=== PATIENT | female | born 1955 | race Caucasian/White ===

== ENCOUNTER 2016-09-24 07:52 | Emergency (ER) | payer SELFPAY ==
[~2016-09-24] VITALS: Ht 167.6 cm; Wt 52.0 kg
[2016-09-24 07:53] VITALS: BP 164/80; PULSE 74; RESP 20; TEMP 98.1; O2SAT 95
--- NOTE | 2016-09-24 08:24 | PD ---
HPI Chief Complaint: Cold / Flu Symptoms Time Seen by Provider: 08:21 Travel History International Travel<30 days: Yes Contact w/Intl Traveler<30days: Yes Name of Country Traveled to: TRAVELED FROM [place] Traveled to known affect area: No History of Present Illness HPI 60-year-old female presents to the emergency department for evaluation of cold symptoms and right-sided chest pain with deep breathing. Patient states she was in [place]. She just traveled from [place] on September 12 when her cold symptoms started. She states that she had flulike symptoms then. She states it did improve, but over the last 2 days have worsened. She denies any current fevers. Her main complaint is right-sided pleuritic chest pain. Patient states she also has intermittent shortness of breath, cough. She has no chronic medical problems and takes no prescribed medications. She states that she has had a productive cough that was brown in color. Patient denies any abdominal pain. No nausea, vomiting, diarrhea. Patient denies any leg edema. No recent surgeries. PFSH Social History Alcohol Use: No Tobacco Use: No Substance Use: No Allergies-Medications (Allergen,Severity, Reaction): Coded Allergies: Iodine (Verified Allergy, Severe, Anaphylaxis, 09/24/16) Penicillin (Verified Allergy, Severe, Rash, 09/24/16) Reported Meds & Prescriptions Reported Meds & Active Scripts Active Guaifenesin ER 12 HR (Guaifenesin) 1,200 Mg Aston 1,200 Mg PO BID Tussionex Pennkinetic Ext 12 HR Liq (Hydrocodone-Chlorpheniramine 12 HR Liq) 10- 8 Mg/5 Ml Susp 5 Ml PO Q12H PRN Zithromax (Azithromycin) 250 Mg Tab 250 Mg PO DAILY Starting tomorrow Review of Systems Except as stated in HPI: all other systems reviewed are Neg Physical Exam Narrative GENERAL: Well-developed well-nourished female patient, ambulatory. Afebrile. SKIN: Warm and dry. HEAD: Normocephalic. Atraumatic. EYES: No scleral icterus. No injection or drainage. NECK: Supple, trachea midline. No JVD or lymphadenopathy. CARDIOVASCULAR: Regular rate and rhythm without murmurs, gallops, or rubs. RESPIRATORY: Breath sounds equal bilaterally. No accessory muscle use. Lungs sounds are clear to auscultation. GASTROINTESTINAL: Abdomen soft, non-tender, nondistended. MUSCULOSKELETAL: No cyanosis, or edema. I am unable to reproduce right-sided chest pain with palpation. BACK: Nontender without obvious deformity. No CVA tenderness. Data Data Last Documented VS Vital Signs Date Time Temp Pulse Resp B/P Pulse Ox O2 Delivery O2 Flow Rate FiO2 09/24/16 07:53 98.1 74 20 164/80 95 Room Air Orders Complete Blood Count With Diff (09/24/16 08:20) Basic Metabolic Panel (Bmp) (09/24/16 08:20) D-Dimer (09/24/16 08:20) Electrocardiogram (09/24/16 08:20) Chest, Single Ap (09/24/16 08:20) Chest, Pa & Lat (09/24/16 09:32) Blood Culture (09/24/16 09:32) Ceftriaxone Inj (Rocephin Inj) (09/24/16 09:45) Azithromycin (Zithromax) (09/24/16 09:45) ^ Saline Lock (09/24/16 09:32) Radiology Film Requests (09/24/16 ) Labs Laboratory Tests Test 09/24/16 08:10 White Blood Count 9.2 TH/MM3 Red Blood Count 4.28 MIL/MM3 Hemoglobin 13.3 GM/DL Hematocrit 39.3 % Mean Corpuscular Volume 91.9 FL Mean Corpuscular Hemoglobin 31.2 PG Mean Corpuscular Hemoglobin 34.0 % Concent Red Cell Distribution Width 12.7 % Platelet Count 413 TH/MM3 Mean Platelet Volume 7.2 FL Neutrophils (%) (Auto) 80.4 % Lymphocytes (%) (Auto) 9.0 % Monocytes (%) (Auto) 9.0 % Eosinophils (%) (Auto) 1.2 % Basophils (%) (Auto) 0.4 % Neutrophils # (Auto) 7.4 TH/MM3 Lymphocytes # (Auto) 0.8 TH/MM3 Monocytes # (Auto) 0.8 TH/MM3 Eosinophils # (Auto) 0.1 TH/MM3 Basophils # (Auto) 0.0 TH/MM3 CBC Comment DIFF FINAL Differential Comment D-Dimer Quantitative (PE/DVT) 1.34 MG/L FEU Sodium Level 135 MEQ/L Potassium Level 4.1 MEQ/L Chloride Level 97 MEQ/L Carbon Dioxide Level 29.8 MEQ/L Anion Gap 8 MEQ/L Blood Urea Nitrogen 9 MG/DL Creatinine 0.64 MG/DL Estimat Glomerular Filtration 94 ML/MIN Rate Random Glucose 81 MG/DL Calcium Level 9.2 MG/DL [facility] Medical Decision Making Medical Screen Exam Complete: Yes Emergency Medical Condition: Yes Medical Record Reviewed: Yes Differential Diagnosis Pneumonia versus bronchitis versus URI versus PE Narrative Course 60-year-old female presents to the emergency department for evaluation of right- sided chest pain with deep breathing as well as cold symptoms. Patient has risk factors of PE including recent travel from [place], possible hemoptysis. I discussed the case with my attending physician, Dr. Hernandez, who recommends basic labs and d-dimer. CBC, BMP, d-dimer, chest x-ray, EKG are ordered and pending. Workup is initiated in triage. Once a medical bed becomes available, patient will be transferred and care assumed by that provider. Scripts Guaifenesin ER 12 HR 1,200 Mg Taber1,200 Mg PO BID #20 TAB Ref 0 Prov:Tiffanie Renteria MD 09/24/16 Hydrocodone-Chlorpheniramine 12 HR Liq (Tussionex Pennkinetic Ext 12 HR Liq)10- 8 Mg/5 Ml Susp5 Ml PO Q12H PRN (COUGH AND/OR COLD SYMPTOMS) #60 ML Ref 0 Prov:Tiffanie Renteria MD 09/24/16 Azithromycin (Zithromax)250 Mg [id number] Mg PO DAILY #4 TAB Ref 0 Starting tomorrow Prov:Tiffanie Renteria MD 09/24/16 Jeanie Ledezma Sep 24, 2016 08:24
[2016-09-24 08:41] LABS: AUTOMATED NEUTROPHIL # 7.4 TH/MM3 (1.8-7.7); BASOPHIL % 0.4 % (0.0-2.0); EOSINOPHIL # 0.1 TH/MM3 (0-0.4); EOSINOPHIL % 1.2 % (0.0-4.0); HEMATOCRIT 39.3 % (35.0-46.0); HEMO FLAGS DIFF FINAL; LYMPHOCYTE # 0.8 TH/MM3 (1.0-4.8); MEAN CELL VOLUME 91.9 FL (80.0-100.0); MEAN CORPUSCULAR HEMOGLOBIN 31.2 PG (27.0-34.0); NEUT % 80.4 % (16.0-70.0); PLATELET COUNT 413 TH/MM3 (150-450); RED BLOOD COUNT 4.28 MIL/MM3 (4.00-5.30); RED CELL DISTRIBUTION WIDTH 12.7 % (11.6-17.2); WHITE BLOOD COUNT 9.2 TH/MM3 (4.0-11.0)
[2016-09-24 09:05] LABS: BICARBONATE 29.8 MEQ/L (21.0-32.0); POTASSIUM 4.1 MEQ/L (3.5-5.1)
--- NOTE | 2016-09-24 09:07 | RADRPT ---
EXAM DATE/TIME: 09/24/2016 08:51 [facility] COMPARISON: No previous studies available for comparison. INDICATIONS : Shortness of breath, lower right thorax pain. MEDICAL HISTORY : Ovarian cyst(s). SURGICAL HISTORY : Colon resection. Cyst removal, ovarian. ENCOUNTER: Initial ACUITY: 1 day PAIN SCORE: 7/10 LOCATION: Right lower chest FINDINGS: Single view of the chest demonstrates crowding of the right pulmonary vessels which may be related to pectus deformity. Slight increased density identified within the inferior right hemithorax may repre sent airspace consolidation. Heart size appears enlarged. Pulmonary vasculature is normal. Osseous structures on this single view are unremarkable. CONCLUSION: Questionable right middle lobe airspace consolidative process versus artifact created by pectus deformity. Recommend correlation with upright PA lateral views of the chest when clinicall y able. Rosy Bautista MD on September 24, 2016 at 9:04 Board Certified Radiologist. This report was verified electronically.
[2016-09-24] MEDS ORDERED: AZITHROMYCIN 250 MG TAB PO ONE (09:45)
[2016-09-24] MEDS ORDERED: cefTRIAXone INJ 1,000 MG in SODIUM CHLORIDE 0.9% INJ 100 ML IV ONE (09:45)
[2016-09-24] MEDS ORDERED: TUSSSUS2 PO (10:01)
[2016-09-24] MEDS ORDERED: ZITH250T PO (10:01)
[2016-09-24] MEDS ORDERED: GUAI10TA PO (10:01)
--- NOTE | 2016-09-24 10:01 | PD ---
Physical Exam Date Seen by Provider: Sep 24, 2016 Time Seen by Provider: 09:10 Narrative Patient presents with right-sided chest pain and was started on September 12. She states that her chest pain is associated with cough, fever, weakness. She states her symptoms have waxed and waned over the course of the last several weeks. She states that her symptoms worsened again last night prompting her visit to us this morning. Patient is traveling here from [place]. She flew here on 09/12. She is scheduled to fly home on 09/27. Patient reports that her right-sided chest pain is exacerbated with breathing and is improved by getting up and moving around. [id number]: Right chest QUALITY: Sharp DURATION: 10 days TIMING: Wax and wanes CONTEXT: Started while flying here from [place] on 09/12 MODIFYING FACTORS: Exacerbated by breathing and improved by moving around ASSOCIATED SYMPTOMS: Fever Data Data Last Documented VS Vital Signs Date Time Temp Pulse Resp B/P Pulse Ox O2 Delivery O2 Flow Rate FiO2 09/24/16 07:53 98.1 74 20 164/80 95 Room Air Orders Complete Blood Count With Diff (09/24/16 08:20) Basic Metabolic Panel (Bmp) (09/24/16 08:20) D-Dimer (09/24/16 08:20) Electrocardiogram (09/24/16 08:20) Chest, Single Ap (09/24/16 08:20) Chest, Pa & Lat (09/24/16 09:32) Blood Culture (09/24/16 09:32) Ceftriaxone Inj (Rocephin Inj) (09/24/16 09:45) Azithromycin (Zithromax) (09/24/16 09:45) ^ Saline Lock (09/24/16 09:32) Radiology Film Requests (09/24/16 ) Labs Laboratory Tests Test 09/24/16 08:10 White Blood Count 9.2 TH/MM3 Red Blood Count 4.28 MIL/MM3 Hemoglobin 13.3 GM/DL Hematocrit 39.3 % Mean Corpuscular Volume 91.9 FL Mean Corpuscular Hemoglobin 31.2 PG Mean Corpuscular Hemoglobin 34.0 % Concent Red Cell Distribution Width 12.7 % Platelet Count 413 TH/MM3 Mean Platelet Volume 7.2 FL Neutrophils (%) (Auto) 80.4 % Lymphocytes (%) (Auto) 9.0 % Monocytes (%) (Auto) 9.0 % Eosinophils (%) (Auto) 1.2 % Basophils (%) (Auto) 0.4 % Neutrophils # (Auto) 7.4 TH/MM3 Lymphocytes # (Auto) 0.8 TH/MM3 Monocytes # (Auto) 0.8 TH/MM3 Eosinophils # (Auto) 0.1 TH/MM3 Basophils # (Auto) 0.0 TH/MM3 CBC Comment DIFF FINAL Differential Comment D-Dimer Quantitative (PE/DVT) 1.34 MG/L FEU Sodium Level 135 MEQ/L Potassium Level 4.1 MEQ/L Chloride Level 97 MEQ/L Carbon Dioxide Level 29.8 MEQ/L Anion Gap 8 MEQ/L Blood Urea Nitrogen 9 MG/DL Creatinine 0.64 MG/DL Estimat Glomerular Filtration 94 ML/MIN Rate Random Glucose 81 MG/DL Calcium Level 9.2 MG/DL [facility] Supervised Visit with CHETAN: Yes Interpretation(s) EKG shows a normal sinus rhythm. She does have evidence of left ventricular hypertrophy and right heart strain. Differential Diagnosis Differential diagnosis of chest pain includes but is not limited to musculoskeletal pain, pulmonary embolism, acute coronary syndrome, pneumonia, pleurisy Narrative Course Patient presents for the evaluation of right-sided chest pain associated with some fever and coughing. Patient has had a recent flight here from [place]. Her PERC score is 1 for age greater than 50. CBC & BMP Diagram 09/24/16 08:10 D-dimer was 1.34 Initial AP chest x-ray is concerning for a right middle lobe infiltrate. The radiologist interpretation was that this could be further evaluated by a formal PA and lateral chest x-ray. That has been ordered. Patient reports anaphylaxis from iodine. Therefore, CT for PE in the ED will not be possible. This patient does have another probable etiology for her symptoms. She is not tachycardic, tachypneic, dyspneic or hypoxic. Therefore, I will not pursue this elevated d-dimer. She will be treated for probable pneumonia. Last Impressions Chest X-Ray 09/24/16 0820 Signed Impressions: Service Date/Time: Saturday, September 24, 2016 08:51 - CONCLUSION: Questionable right middle lobe airspace consolidative process versus artifact created by pectus deformity. Recommend correlation with upright PA lateral views of the chest when clinically able. Rosy Bautista MD The PA and lateral views of the chest x-ray confirmed the suspected diagnosis of a right middle lobe infiltrate. The plain films were all independently viewed by me. Diagnosis Primary Impression: Pneumonia Qualified Code: J18.1 - Pneumonia of right middle lobe due to infectious organism Med/Other Pt SpecificInfo: Prescription(s) given Scripts Guaifenesin ER 12 HR 1,200 Mg Taber1,200 Mg PO BID #20 TAB Ref 0 Prov:Tiffanie Renteria MD 09/24/16 Hydrocodone-Chlorpheniramine 12 HR Liq (Tussionex Pennkinetic Ext 12 HR Liq)10- 8 Mg/5 Ml Susp5 Ml PO Q12H PRN (COUGH AND/OR COLD SYMPTOMS) #60 ML Ref 0 Prov:Tiffanie Renteria MD 09/24/16 Azithromycin (Zithromax)250 Mg [id number] Mg PO DAILY #4 TAB Ref 0 Starting tomorrow Prov:Tiffanie Renteria MD 09/24/16 Disposition: 01 DISCHARGE HOME Condition: Stable Tiffanie Renteria MD Sep 24, 2016 10:01
--- NOTE | 2016-09-24 10:09 | RADRPT ---
EXAM DATE/TIME: 09/24/2016 10:03 [facility] COMPARISON: No previous studies available for comparison. INDICATIONS : Shortness of breath. MEDICAL HISTORY : Venous insufficiency. Ovarian cyst(s). SURGICAL HISTORY : Colon resection. Cyst removal, ovarian ENCOUNTER: Initial ACUITY: 1 day PAIN SCORE: 0/10 LOCATION: Bilateral chest FINDINGS: PA lateral views of the thorax demonstrate moderate pectus deformity contributing to crowding of the right pulmonary vasculature. However, there is slight adjacent parenchymal increased density greater than can be attributed to the pectus deformity concerning for airspace consolidation within the right middle lobe. There is moderate cardiomegaly present. No current evidence of congestive heart failure. CONCLUSION: Concern for airspace consolidation within the right middle lobe as well as the pectus deformity causing crowding of the adjacent pulmonary vasculature. There is moderate cardiomegaly wi thout evidence of congestive heart failure. Rosy Bautista MD on September 24, 2016 at 10:05 Board Certified Radiologist. This report was verified electronically.
--- NOTE | 2016-09-25 14:05 | EKG ---
Date Performed: 09/24/2016 Time Performed: 08:32:06 PTAGE: 60 years EKG: Sinus rhythm LEFT ATRIAL ENLARGEMENT BORDERLINE RIGHT AXIS DEVIATION INCOMPLETE RIGHT BUNDLE BRANCH BLOCK POSSIBL E LEFT VENTRICULAR HYPERTROPHY ABNORMAL QRS-T ANGLE ABNORMAL ECG NO PREVIOUS TRACING DOCTOR: Julian Patel Interpretating Date/Time 09/25/2016 14:01:58
== END 2016-09-24 10:44 | disposition home or self-care (01) ==
LOC: NEPA 07:52
DX: J18.1 Lobar pneumonia, unspecified organism (principal)
CPT/HCPCS: 71010; 71020; 80048; 85025; 85379; 87040; 93005; 96374; 99284; J0696